=== PATIENT | male | born 1975 | race Caucasian/White ===

== ENCOUNTER 2020-12-14 00:32 | Outpatient (REF) | payer MEDICARE, MEDICAID, SELFPAY ==
[2020-12-13 19:43] LABS: Calculated LDL 171 mg/dL (<100); Cholesterol 250 mg/dL (<200); HDL Cholesterol 62 mg/dL (40-60); Triglyceride 86 mg/dL (<150)
[2020-12-17 11:32] LABS: Hepatitis C Ab w Rflx HCV PCR Negative (Negative)
== END 2020-12-14 00:33 | disposition home or self-care (01) ==
LOC: NCHCN 00:32
PROVIDERS: Visit Provider Internal Medicine
DX: F32.9 Major depressive disorder, single episode, unspecified (principal); F12.10 Cannabis abuse, uncomplicated; Z11.59 Encounter for screening for other viral diseases; E78.89 Other lipoprotein metabolism disorders
CPT/HCPCS: 80061; 86803

== ENCOUNTER 2023-02-02 16:23 | Outpatient (REF) | payer MEDICARE, SELFPAY ==
[2023-02-02 20:15] LABS: HCT 48.4 % (40.0-50.0); HGB 16.1 g/dL (13.5-17.5); MCH 31.3 pg (27.0-33.0); MCHC 33.3 % (32.0-36.0); MCV 94 fL (80-95); MPV 9.8 fL (8.0-11.0); Platelet Count 327 10^3/uL (130-400); RBC 5.15 10^6/uL (4.36-5.78); RDW 13.1 % (11.8-14.1); RDW-SD 45.3 fL
[2023-02-02 20:48] LABS: ALT 69 U/L (16-63); AST 30 U/L (15-37); Albumin 4.4 g/dL (3.4-5.0); Alkaline Phosphatase 132 U/L (46-116); Anion Gap 9.6 mmol/L (3-11); BUN 11 mg/dL (7-18); Bilirubin, Total 0.4 mg/dL (0.2-1.0); CO2 33.4 mmol/L (21.0-32.0); CREATININE 1.1 mg/dL (0.70-1.30); Calcium 9.5 mg/dL (8.5-10.1); Chloride 99 mmol/L (98-107); Estimated GFR 83.32 (mL/min/1.73m2); Glucose 101 mg/dL (74-106); Potassium 4.2 mmol/L (3.5-5.1); Sodium 142 mmol/L (136-145); TSH 1.12 uIU/mL (0.36-3.74); Total Protein 8.5 g/dL (6.4-8.2)
[2023-02-04 09:14] LABS: Hepatitis B Surface Ag Negative (Negative)
[2023-02-04 09:57] LABS: Hepatitis C Ab w Rflx HCV PCR Negative (Negative)
[2023-02-04 10:16] LABS: HIV-1/2 Ag & Ab Screen Negative (Negative)
[2023-02-04 11:21] LABS: Syphilis Serology (RPR) Negative (Negative)
== END 2023-02-02 16:24 | disposition home or self-care (01) ==
LOC: NCHCN 16:23
PROVIDERS: Visit Provider Internal Medicine
DX: R53.83 Other fatigue (principal); A63.8 Other specified predominantly sexually transmitted diseases; Z11.59 Encounter for screening for other viral diseases; Z11.4 Encounter for screening for human immunodeficiency virus [HIV]
CPT/HCPCS: 80053; 85027; 86803; 87340; 87389; 84443; 86592

== ENCOUNTER 2024-02-01 14:48 | Outpatient (REF) | payer OTHER, MEDICAID, SELFPAY ==
[2024-02-01 19:29] LABS: Calculated LDL 152 mg/dL (<100); Cholesterol 245 mg/dL (<200); HDL Cholesterol 59 mg/dL (40-60); Triglyceride 173 mg/dL (<150)
== END 2024-02-01 14:49 | disposition home or self-care (01) ==
LOC: NCHCN 14:48
PROVIDERS: Visit Provider Internal Medicine
DX: E78.5 Hyperlipidemia, unspecified (principal); F17.200 Nicotine dependence, unspecified, uncomplicated
CPT/HCPCS: 80061

== ENCOUNTER 2024-12-29 13:46 | Outpatient (REF) | payer MEDICARE, MEDICAID, SELFPAY ==
[2024-12-29 20:10] LABS: Anion Gap 3.4 mmol/L (3-11); BUN 7 mg/dL (7-18); CO2 32.6 mmol/L (21.0-32.0); CREATININE 1.1 mg/dL (0.70-1.30); Calcium 9.5 mg/dL (8.5-10.1); Calculated LDL 124 mg/dL (<100); Chloride 107 mmol/L (98-107); Cholesterol 212 mg/dL (<200); Estimated GFR 82.29 (mL/min/1.73m2); Glucose 100 mg/dL (74-106); HDL Cholesterol 54 mg/dL (>or=40); Potassium 5.8 mmol/L (3.5-5.1); Sodium 143 mmol/L (136-145); TSH 0.11 uIU/mL (0.36-3.74); Triglyceride 171 mg/dL (<150)
== END 2024-12-29 13:47 | disposition home or self-care (01) ==
LOC: NCHCN 13:46
PROVIDERS: Visit Provider Internal Medicine
DX: R03.0 Elevated blood-pressure reading, without diagnosis of hypertension (principal)
CPT/HCPCS: 80048; 80061; 84443